=== PATIENT | male | born 1975 | race Caucasian/White ===

== ENCOUNTER 2020-09-27 02:28 | Emergency (ER) | payer BC ==
[~2020-09-27] VITALS: Ht 170.2 cm; Wt 65.0 kg
[~2020-09-27 02:28] MED LIST: NO HOME MEDS
[2020-09-27] MEDS ORDERED: ondansetron/PF 4mg/2ml inj IV ONE (02:55)
[2020-09-27] MEDS ORDERED: normal saline 1000ML IV soln IVB ONE (02:55)
[2020-09-27] MEDS ORDERED: morphine 4 MG/ML inj SYRINge IV PRN (02:55)
[2020-09-27 03:09] LABS: BASOPHILS % (AUTO) 0.6 % (0-1); EOSINOPHILS % (AUTO) 0.5 % (0-6); HEMATOCRIT 48.5 % (42.0-52.0); LYMPHOCYTES # (AUTO) 1.2 X10'3 (1.1-4.8); LYMPHOCYTES % (AUTO) 16.3 % (21-51); MEAN CORPUSCULAR HEMOGLOBIN 29.6 PG (27.0-31.0); MEAN CORPUSCULAR HGB CONC 35.1 g/dL (33.0-36.5); MEAN CORPUSCULAR VOLUME 84.3 FL (78-98); MEAN PLATELET VOLUME 8.3 FL (7.4-10.4); MONOCYTES % (AUTO) 13.6 % (2-12); NEUTROPHILS # (AUTO) 5.2 X10'3 (1.8-7.7); PLATELET COUNT 269 X10'3 (140-440); RED BLOOD COUNT 5.75 X10'6 (4.70-6.10); RED CELL DISTRIBUTION WIDTH 13.2 % (11.5-14.5); WHITE BLOOD COUNT 7.5 X10'3 (4.5-11.0)
[2020-09-27 03:18] LABS: ALANINE AMINOTRANSFERASE 60 U/L (12-78); ALBUMIN 4.2 G/DL (3.4-5.0); ALBUMIN/GLOBULIN RATIO 1.1 (1.1-1.5); ALKALINE PHOSPHATASE 75 IU/L (46-116); ANION GAP 14 (8-16); ASPARTATE AMINO TRANSFERASE 26 U/L (10-37); BILIRUBIN,TOTAL 0.9 MG/DL (0.1-1.0); BLOOD UREA NITROGEN 9 MG/DL (7-18); BUN/CREATININE RATIO 7.3 (5.4-32.0); CHLORIDE 103 MMOL/L (99-107); CREATININE 1.24 MG/DL (0.60-1.10); GLUCOSE 102 MG/DL (70-104); POTASSIUM 3.3 MMOL/L (3.5-5.1); SODIUM 142 MMOL/L (135-145); TOTAL CARBON DIOXIDE 24.9 MMOL/L (24-32); TOTAL PROTEIN 8.2 G/DL (6.4-8.2); eGFR 63 ML/MIN
[2020-09-27 03:20] LABS: LIPASE 138 U/L (73-393); TROPONIN I < 0.04 NG/ML (0.0-0.05)
[2020-09-27] MEDS ORDERED: OMEP20CA15 PO (03:22)
[2020-09-27] MEDS ORDERED: DICY10CA88 PO (03:22)
[2020-09-27] MEDS ORDERED: ONDA4TAB6 PO (03:22)
[2020-09-27 03:57] VITALS: BP 141/96
== END 2020-09-27 03:59 | disposition home or self-care (01) ==
LOC: ER 02:28
DX: R10.13 Epigastric pain (principal); Z90.49 Acquired absence of other specified parts of digestive tract; Z79.899 Other long term (current) drug therapy
CPT/HCPCS: 36415; 74176; 80053; 83690; 84484; 85025; 96374; 96375; 99284; J2270; J2405; J7030

== ENCOUNTER 2022-12-20 19:57 | Emergency (ER) | payer BC ==
[~2022-12-20 19:57] MED LIST changes: +DICY10CA88 PO; +OMEP20CA15 PO; +ONDA4TAB6 PO
[2022-12-20 20:14] VITALS: BP 159/106
[2022-12-20] MEDS ORDERED: LIDOcaine 1% W/epiNEPHrine 1:100,000 20ml vial SQ ONE (21:10)
[2022-12-20] MEDS ORDERED: TETanus/Pertussis (Acell)/Diphther VAC/PF (Tdap-Adult) 0.5ml syringe IMVAC ONE (21:10)
[2022-12-20] MEDS ORDERED: oxyCODONE/APAP 5-325mg tablet PO ONE (21:10)
[2022-12-20] MEDS ORDERED: bacitracin 15gm ointment TP ONE (21:10)
--- NOTE | 2022-12-20 21:14 | NUR ---
PT to xray
--- NOTE | 2022-12-20 22:32 | NUR ---
Laceration irrigated and patient pending sutures.
[2022-12-20] MEDS ORDERED: cephalexin 250mg capsule PO ONE (23:10)
[2022-12-20] MEDS ORDERED: CEPH250T PO (23:11)
== END 2022-12-20 23:28 | disposition home or self-care (01) ==
LOC: ER 19:57
DX: S51.011A Laceration without foreign body of right elbow, initial encounter (principal); V87.8XXA Person injured in other specified noncollision transport accidents involving motor vehicle (traffic), initial encounter; Y93.89 Activity, other specified; Y92.89 Other specified places as the place of occurrence of the external cause; Y99.8 Other external cause status
CPT/HCPCS: 12002; 73070; 73080; 73130; 90471; 90715; 99284; A6258; A6449

== ENCOUNTER 2025-03-03 04:01 | Inpatient (IN) | payer BC ==
[~2025-03-03] VITALS: Ht 167.6 cm; Wt 75.0 kg
--- NOTE | 2025-03-03 04:36 | Physician Documentation ---
History of Present Illness General Chief Complaint: Abdominal Pain Stated Complaint: ABDOMINAL PAIN Time Seen by MD: 04:31 OK to notify your PCP?: Yes Primary Medical Doctor: unknown History of Present Illness Initial Comments This is a 49-year-old gentleman, with a history of appendectomy, who presents for evaluation of sudden onset epigastric abdominal pain. Nonradiating, not migratory, sharp, accompanied by severe nausea. No palliating or aggravating factors. Did not attempt to treat it. This is different from appendicitis pain and has not happened in the past. Denies any chest pain or shortness a breath. No concern for tobacco or illicit substances use. He drinks almost daily. Medication Reconciliation Allergies: Uncoded Allergies: PCN (Allergy, Unknown, 12/29/17) Miscellaneous Medications Home Med List (No Home Medications), (Reported) Discontinued Medications Dicyclomine Hcl* (Bentyl*), 1 CAP PO TID Discontinued Reason: patient no longer taking Omeprazole (Omeprazole), 2 CAP PO BID Discontinued Reason: patient no longer taking Ondansetron Hcl (Zofran), 1 TAB PO Q6H PRN for nausea/vomiting Discontinued Reason: patient no longer taking Past Medical History Past Medical History: No Pertinent History Past Surgical History: appendectomy Drug Use: none Lives with: Spouse Lives In: Home Review of Systems ROS 10 point review of systems was performed and unless noted above in HPI is negative for acute process/complaint. Physical Exam Physical Exam Vital Signs: RN Vital Signs have been reviewed: Yes, Temperature: 96.2, Source: Temporal, Heart Rate: 91, Respiratory Rate: 20, BP: 141/75, Pulse Oximetry: 100, Weight: 75.000 Physical Exam GENERAL: Awake, alert, oriented, GCS 15, [id number] pain related distress, diaphoretic, answers questions, follows commands appropriately. Examined in bed 2., accompanied by HEENT: Atraumatic, normocephalic, pupils equal, extraocular muscles intact, sclerae anicteric, mucus membranes moist, oropharynx is clear, no stridor. NECK: supple, full active range of motion, trachea midline, no thyromegaly, no lymphadenopathy, no JVD. CARDIOVASCULAR: regular rate/rhythm, no murmurs/gallops/rubs, Pulses are 2+ in all extremities and symmetric. Capillary refill less than 2 seconds. PULMONARY: Nonlabored, good air movement ,no respiratory distress, speaking in full sentences, clear to auscultation bilaterally, no wheezing, no ronchi, no rales, no accessory muscle use. GASTROINTESTINAL: Soft, tender to palpation in the upper abdomen without guarding or rebound, non-distended, normal active bowel sounds, no organomegaly, no pulsatile masses, no CVA tenderness. NEUROLOGIC: Lucid with normal mental status. Normal facial symmetry. Moves all extremities symmetrically and with purpose. No truncal ataxia. Speech is fluid without evidence of dysarthria or aphasia, no focal deficits appreciated. MUSCULOSKELETAL: There is full range of motion of all extremities. There is no joint pain or joint swelling or joint erythema. There is no muscle pain or tenderness or swelling. EXTREMITIES: warm, well-perfused, no cyanosis, no clubbing, no edema, no acute deformities. Skin: warm, dry, no rashes or lesions, no jaundice, no petechiae orpurpura. No ecchymosis. PSYCHIATRIC: Normal affect, normal insight, normal concentration. Focused exam: [] Progress Results/Orders Reviewed/noted all lab results: Yes Results/Orders Orders - BERNARDO DAWSON DO Monitor (03/03/25 04:32) Saline Lock (03/03/25 04:32) Ct Abdomen Pelvis (03/03/25 05:20) Ultrasound Of Abdomen (03/03/25 ) Completed Orders - BERNARDO DAWSON DO Ondansetron Inj. (Zofran 4mg/2ml Vial) (03/03/25 04:35) Morphine 4mg/Ml Inj. (Morphine Inj.) (03/03/25 04:35) Prochlorperazine Inj (Compazine Inj) (03/03/25 04:35) Amylase (03/03/25 04:32) Cbc/Diff (03/03/25 04:32) ESR (03/03/25 04:32) Lipase (03/03/25 04:32) C-Reactive Protein (03/03/25 04:32) MG (03/03/25 04:32) Normal Saline 1000ml (0.9% Sodium Chlori (03/03/25 04:35) Ct Abdomen Pelvis (03/03/25 05:20) CMP (03/03/25 04:32) Hs Troponin I W Calculations (03/03/25 04:32) Hs Troponin I W Calculations (03/03/25 06:32) Iohexol 300mg/Ml 100ml Inj. (Omnipaque-3 (03/03/25 04:42) Fentanyl/Pf (Fentanyl 0.05 Mg/Ml Syringe (03/03/25 05:00) Ua W/Microscopic, Cult If Ind (03/03/25 05:14) Ultrasound Of Abdomen (03/03/25 ) TSH (03/03/25 04:30) Vital Signs 03/03/25 03/03/25 03/03/25 03/03/25 04:04 04:48 05:09 06:33 Temp 96.2 Pulse 91 Resp 20 18 14 12 B/P (MAP) 141/75 Pulse Ox 100 03/03/25 03/03/25 03/03/25 03/03/25 06:33 07:00 08:00 08:10 Pulse 93 92 Resp 12 11 12 16 B/P (MAP) 119/82 (94) 123/77 (92) Pulse Ox 98 97 O2 Flow Rate 0 0 Laboratory Tests Test 03/03/25 04:30 03/03/25 05:14 03/03/25 07:27 White Blood Count 6.4 Red Blood Count 5.71 Hemoglobin 16.7 Hematocrit 48.5 Mean Corpuscular Volume 85.0 Mean Corpuscular Hemoglobin 29.2 Mean Corpuscular Hemoglobin Concent 34.4 Red Cell Distribution Width 13.1 Platelet Count 287 Mean Platelet Volume 8.6 Neutrophils (%) (Auto) 66.2 Lymphocytes (%) (Auto) 22.1 Monocytes (%) (Auto) 10.3 Eosinophils (%) (Auto) 0.8 Basophils (%) (Auto) 0.6 Neutrophils # (Auto) 4.2 Lymphocytes # (Auto) 1.4 Monocytes # (Auto) 0.7 Eosinophils # (Auto) 0.1 Basophils # (Auto) 0.0 CBC Comment Erythrocyte Sedimentation Rate 2 Sodium Level 140 Potassium Level 3.8 Chloride Level 106 Carbon Dioxide Level 27.8 Anion Gap 6 L Blood Urea Nitrogen 8 Creatinine 1.03 Estimated GFR/1.73 m2 77 BUN/Creatinine Ratio 7.8 L Glucose Level 115 H Calcium Level 8.5 Magnesium Level 2.1 Total Bilirubin 0.7 Aspartate Amino Transf (AST/SGOT) 19 Alanine Aminotransferase (ALT/SGPT) 32 Alkaline Phosphatase 81 Troponin I High Sensitivity 7 8 C-Reactive Protein 0.18 Total Protein 7.1 Albumin 3.8 Globulin 3.3 Albumin/Globulin Ratio 1.2 Amylase Level 196 H Lipase 32 Thyroid Stimulating Hormone (TSH) 3.01 Chemistry Comments Urine Specimen Description Non-specified Urine Color Yellow Urine Clarity Slightly cloudy Urine pH 7.5 Urine Specific [place] 1.015 Urine Protein Negative Urine Glucose (UA) Negative Urine Ketones Negative Urine Occult Blood Negative Urine Nitrite Negative Urine Bilirubin Negative Urine Urobilinogen 0.2 Urine Leukocyte Esterase Negative Urine RBC None seen Urine WBC None seen Urine Squamous Epithelial Cells None seen Urine Amorphous Phosphates 4+ Urine Bacteria Few Urine Culture Indicated Not ind Volume Urine Centrifuged 10 ml Urine Comment Troponin I High Sens Percent Delta 14 Troponin I Hi Sens Absolute Change 1 EKG/XRAY/CT/US/VASC/MRI CT : Interpreted By: radiologist CT: abdomen/pelvis With Contrast?: No Impression Exam: CT CT ABDOMEN PELVIS W/ IV CONTRAST History: Severe upper abdominal pain COMPARISON: CT ABDOMEN PELVIS on DOS: 09/27/20 Technique: Multidetector spiral CT of the abdomen and pelvis was performed from lung bases to pubic symphysis. Intravenous contrast was administered during this examination. Portal venous imaging was obtained. Axial, coronal and sagittal multiplanar reformats were performed by the technologist on a separate workstation. Radiation Dose : 1. Abdomen/Pelvis: CTDIvol 16.57 mGy, DLP 835.15 mGy*cm. CONTRAST: Type of contrast: Omniscan 300 Contrast injected: 100 ml Findings: Lung Bases: No acute or significant lung base finding. Normal heart size. No pleural or pericardial effusion. Liver: The liver is normal in size. No focal lesions. Normal hepatic vascular enhancement. Gallbladder and Biliary Tree: Mild nonspecific gallbladder distention. Spleen: Unremarkable Pancreas: The pancreas is normal in appearance without focal lesions or abnormal enhancement. Adrenal Glands: Unremarkable Kidneys: No nephrolithiasis or hydronephrosis. Bladder: Unremarkable Bowel: Small sliding-type hiatal hernia. The stomach is grossly normal in appearance. Small bowel and colon are normal in caliber and distribution. The appendix is surgically absent. Ascites: Absent Lymphadenopathy: No mesenteric, retroperitoneal or periportal lymphadenopathy. Abdominal Wall and Mesentery: Unremarkable. Vasculature: The visualized abdominal aorta is normal in size and caliber. Abdominal and pelvic vessels demonstrate normal enhancement. Pelvic Organs: The prostate is moderately enlarged, measuring 5.0 cm transverse, with parenchymal calcifications. Musculoskeletal: No aggressive focal bony lesions, acute fractures or dislocation. IMPRESSION: 1. No acute abdominal or pelvic finding. 2. Small sliding-type hiatal hernia. 3. Prostatomegaly. 4. Mild nonspecific gallbladder distention. Radiation optimization: All CT scans at this facility use at least one of these dose optimization techniques: automated exposure control mA and/or kV adjustment per patient size (includes targeted exams where dose is matched to clinical indication) or iterative reconstruction. Reviewed by myself Ultrasound : Interpreted By: radiologist Ultrasound of: abdomen Impression CLINICAL INFORMATION: Right upper quadrant abdominal pain. TECHNIQUE: Grayscale sonographic imaging of the right upper quadrant of the a faisal was performed, assisted by color Doppler techniques. COMPARISON: CT CT ABDOMEN PELVIS W/ IV CONTRAST on DOS: 03/03/25, CT ABDOMEN PELVIS on DOS: 09/27/20 FINDINGS: The gallbladder wall measures 5.2 mm in thickness, abnormally thickened. There is a shadowing gallstone in the gallbladder measuring up to 1.1 cm in greatest dimension. Negative reported sonographic Braxton's sign. The common bile duct measures 5.3 mm in diameter, within normal limits. The liver is within normal limits in size. There is an echogenic lesion in the right hepatic lobe measuring up to 1.2 cm in greatest dimension, likely hemangioma. The pancreas is obscured by bowel gas. The right kidney measures 10.5 cm. There is no hydronephrosis. Right renal cortical echogenicity and cortical thickness are within normal limits. Portions of the right kidney are obscured by bowel gas. IMPRESSION: 1. Cholelithiasis with thickened gallbladder wall. Acute cholecystitis can not be excluded, although a negative sonographic braxton's sign was reported. 2. Echogenic lesion in the liver, likely hemangioma. Nonemergent MRI liver mass protocol could be considered to further characterize. Reviewed by myself. Medical Decision Making Findings Facility Status: ED Holds, [facility] process The plan was discussed with the patient, who demonstrates clear understanding of the plan and is in agreement with the plan unless otherwise noted in the chart. All questions have been answered, all concerns were addressed unless otherwise documented. I was available throughout their ED stay for frequent reassessment and questions. Differential Diagnoses (considered and possible or likely): [Differential diagnosis considered includes acute appendicitis, acute cholecystitis, pancreatitis, gastritis, PUD, diverticulitis, mesenteric ischemia, abdominal aortic aneurysm, bowel obstruction, enteritis, colitis, fecal impaction, volvulus, IBS, inflammatory bowel disease, specific food intolerance, peritonitis, perforated viscous, malignancy, UTI, abscess, and abdominal pain NOS. History, physical exam, and workup exclude many of the more serious causes listed above. ] ??Differential Diagnoses (considered and unlikely, not requiring evaluation currently): [Aortic/great vessels dissection was considered but it is unlikely based on absence of ripping, tearing, migratory chest pain, absence of syncope or focal neurologic deficits, physical examination indicating equal and symmetric pulses.] MDM Data Please see [facility] for the following: Independent Historians and external Records Review. Historian: [Patient] Independent Historians: ?[, record review] Medication Management: [Reviewed medication list] Social History and determinants: [Reviewed] Please see the body of the note for the following: Any independent interpre tations of ECG, imaging studies. All vitals signs/haemodynamics, ordered tests were independently reviewed and interpreted by myself. Nursing triage complaint and vitals reviewed, additional nursing notes were reviewed as available and I agree unless otherwise noted or documented in contradiction in the chart Vital Signs: Independently reviewed Labs: Independently interpreted Imaging: Independently interpreted Old Medical Records: Independently reviewed, see [facility] for relevant summary and information Pulse Oximetry: [96%] interpreted as [normal on room air] by me [Mobile Application Development Lead: [Regular Rate, Regular rhythm, no ectopy, NSR] reviewed and interpreted by me] Additionally notably showing: [Hemodynamics reviewed. The patient isn't febrile, not tachycardic, no evidence of hypotension respiratory distress. CBC normal. No leukocytosis, no anemia, normal platelets, no neutrophilic pre dominance. Metabolic panel shows very mild hypokalemia. Slightly elevated creatinine. Lipase is normal. Amylase is normal. Troponin is negative.] Tests considered but not ordered include: [Additionally did not considerably ultrasound, however given in the factors CT does not appear to reveal a cause of his pathology, we will obtain the ultrasound.] Social Determinants of Health Impact: Patient was evaluated in [facility], or [facility] [place] to healthcare due to below par ratio of patient to medical providers. [] Comorbid Conditions Impacting Present Evaluation and Care/Treatment: [History of appendectomy] Management Discussions with other Healthcare Providers: [None] Treatment and Disposition Medication Management (Given or considered): [Antiemetics, pain management]. See EMR for details Consideration for Hospitalization/Escalation/Deescalation of Care: Admission for observation has been considered, [however the patient is able to tolerate p.o., their symptoms are controlled, they are able to rely on oral medications, and their chief complaint/diagnosis can be managed on outpatient basis.] ?ED Course:?[Date: Mar 03, 2025 Time: 05:51 patient was signed out pending formal read of the CT as well as performance and read of the ultrasound two and incoming physician. Pain was well-controlled left of fentanyl. ] ?Shared decision making:?[] Code status:?FULL Please see the full Electronic Medical Record for full details of nursing documentation, medications list, other records of complete past medical history and conditions, vital signs, laboratory studies, and any radiologic study interpretations by radiologists. Portions of this note were completed using [employer] dictation software and as a result there may exist minor errors in spelling. I have reviewed elements of past family and social history and agree as included in note. Departure Disposition: 09 ADMITTED INPATIENT Impression: Primary Impression: Acute cholecystitis Additional Impressions: Upper abdominal pain Nausea and vomiting Condition: Improved Discharge Instructions: Abdominal Pain (Nonspecific) Referrals: NO PRIMARY CARE PROVIDER (PCP) Critical Care Note Critical Care Note Patient's ultrasound is positive for for acute cholecystitis. Patient was admitted to medical service by Dr. Hall. Signature Scribe Signature: Scribed for [facility] MD by Dariela Alan . 03/03/25 16:00 Attestation: Date: Mar 03, 2025 Time: 04:36 This note accurately reflects clinical decisions, work performed by myself, DO SAMIR Cordova NICHOLAS M DO Mar 03, 2025 04:36 DARIELA FRY Mar 03, 2025 16:01
[2025-03-03] MEDS ORDERED: iohexol 300mg/ml 100ml inj. ONE (04:42)
[2025-03-03] MEDS: normal saline 1000ML IV soln IVB ONE ×2 (04:47→08:11)
[2025-03-03] MEDS: ondansetron/PF 4mg/2ml inj IV ONE (04:48)
[2025-03-03] MEDS: morphine 4 MG/ML inj SYRINge IV ONE (04:48)
[2025-03-03 04:51] LABS: MEAN PLATELET VOLUME 8.6 FL (7.4-10.4); RED CELL DISTRIBUTION WIDTH 13.1 % (11.5-14.5)
[2025-03-03] MEDS: fentaNYL/PF 50MCG/1 ML 2ML syringe IV ONE (05:09)
[2025-03-03 05:26] LABS: LEUKOCYTE ESTERASE ,URINE NEGATIVE (Neg); NITRITES, URINE NEGATIVE (Neg); OCCULT BLOOD,URINE NEGATIVE (Neg)
[2025-03-03 05:31] LABS: UA COLLECTION TYPE NON-SPECIFIED
[2025-03-03 05:34] LABS: AMORPHOUS PHOSPHATES 4+; SQUAMOUS EPITHELIAL CELL,UR NONE SEEN /LPF (FEW)
--- NOTE | 2025-03-03 06:02 | RADIOLOGY REPORT ---
Exam: CT CT ABDOMEN PELVIS W/ IV CONTRAST History: Severe upper abdominal pain COMPARISON: CT ABDOMEN PELVIS on DOS: 09/27/20 Technique: Multidetector spiral CT of the abdomen and pelvis was performed from lung bases to pubic s ymphysis. Intravenous contrast was administered during this examination. Portal venous imaging was o btained. Axial, coronal and sagittal multiplanar reformats were performed by the technologist on a [employer] workstation. Radiation Dose : 1. Abdomen/Pelvis: CTDIvol 16.57 mGy, DLP 835.15 mGy*cm. CONTRAST: Type of contrast: Omniscan 300 Contrast injected: 100 ml Findings: Lung Bases: No acute or significant lung base finding. Normal heart size. No pleural or pericardial effusion. Liver: The liver is normal in size. No focal lesions. Normal hepatic vascular enhancement. Gallbladder and Biliary Tree: Mild nonspecific gallbladder distention. Spleen: Unremarkable Pancreas: The pancreas is normal in appearance without focal lesions or abnormal enhancement. Adrenal Glands: Unremarkable Kidneys: No nephrolithiasis or hydronephrosis. Bladder: Unremarkable Bowel: Small sliding-type hiatal hernia. The stomach is grossly normal in appearance. Small bowel and colon are normal in caliber and distribution. The appendix is surgically absent. Ascites: Absent Lymphadenopathy: No mesenteric, retroperitoneal or periportal lymphadenopathy. Abdominal Wall and Mesentery: Unremarkable. Vasculature: The visualized abdominal aorta is normal in size and caliber. Abdominal and pelvic vess els demonstrate normal enhancement. Pelvic Organs: The prostate is moderately enlarged, measuring 5.0 cm transverse, with parenchymal christen cifications. Musculoskeletal: No aggressive focal bony lesions, acute fractures or dislocation. IMPRESSION: 1. No acute abdominal or pelvic finding. 2. Small sliding-type hiatal hernia. 3. Prostatomegaly. 4. Mild nonspecific gallbladder distention. Radiation optimization: All CT scans at this facility use at least one of these dose optimization malachi hniques: automated exposure control mA and/or kV adjustment per patient size (includes targeted exam s where dose is matched to clinical indication) or iterative reconstruction.
[2025-03-03] MEDS: ketorolac trometh 15mg/ml vial 15 MG/ML ML IV ONE (08:10)
[2025-03-03] MEDS: CefTRIAXone 2gm/D5W 50ml BAG 50 ML IV ONE (08:11)
--- NOTE | 2025-03-03 08:34 | RADIOLOGY REPORT ---
CLINICAL INFORMATION: Right upper quadrant abdominal pain. TECHNIQUE: Grayscale sonographic imaging of the right upper quadrant of the abdomen was performed, a ssisted by color Doppler techniques. COMPARISON: CT CT ABDOMEN PELVIS W/ IV CONTRAST on DOS: 03/03/25, CT ABDOMEN PELVIS on DOS: 09/27/20 FINDINGS: The gallbladder wall measures 5.2 mm in thickness, abnormally thickened. There is a shad owing gallstone in the gallbladder measuring up to 1.1 cm in greatest dimension. Negative reported so nographic Braxton's sign. The common bile duct measures 5.3 mm in diameter, within normal limits. The liver is within normal limits in size. There is an echogenic lesion in the right hepatic lobe rufus suring up to 1.2 cm in greatest dimension, likely hemangioma. The pancreas is obscured by bowel gas. The right kidney measures 10.5 cm. There is no hydronephrosis. Right renal cortical echogenicity a nd cortical thickness are within normal limits. Portions of the right kidney are obscured by bowel ga s. IMPRESSION: 1. Cholelithiasis with thickened gallbladder wall. Acute cholecystitis can not be excluded, although a negative sonographic braxton's sign was reported. 2. Echogenic lesion in the liver, likely hemangioma. Nonemergent MRI liver mass protocol could be con sidered to further characterize.
[2025-03-03 08:40] LABS: CREATININE 1.03 MG/DL (0.60-1.10); TOTAL CARBON DIOXIDE 27.8 MMOL/L (24-32); eCRCL 79 ML/MIN; eGFR 77 ML/MIN
[2025-03-03 10:06] LABS: URINE AMPHETAMINE SCREEN NEGATIVE (Neg); URINE BARBITUATE SCREEN NEGATIVE (Neg); URINE BENZODIAZEPINES SCREEN NEGATIVE (Neg); URINE CANNABINOID SCREEN NEGATIVE (Neg); URINE COCAINE SCREEN NEGATIVE (Neg); URINE METHADONE SCREEN NEGATIVE (Neg); URINE OPIATE SCREEN POSITIVE (Neg); URINE PHENCYCLIDINE SCREEN NEGATIVE (Neg)
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
[2025-03-03] MEDS ORDERED: potassium Cl 20 mEq SR tablet PO PRN ×2 (11:35)
[2025-03-03] MEDS ORDERED: haloperidol lactate 5mg/ml inj IM PRN (11:35)
[2025-03-03] MEDS ORDERED: magnesium Cl slow-release 64mg tablet PO PRN (11:35)
[2025-03-03] MEDS ORDERED: HYDROcodone/acetaminophen 5mg/325mg tablet PO PRN (11:35)
[2025-03-03] MEDS ORDERED: magnesium hydroxide 30ml (MOM) UD suspension PO PRN (11:35)
[2025-03-03] MEDS ORDERED: dextrose 50%-water 50ml dispensing syringe IV PRN (11:35)
[2025-03-03] MEDS ORDERED: ondansetron/PF 4mg/2ml inj IV PRN (11:35)
[2025-03-03] MEDS ORDERED: magnesium sulf-water 2g/50mL 50 ML IV PRN (11:35)
[2025-03-03] MEDS ORDERED: magnesium sulf-water 4G/100mL 100 ML IV PRN (11:35)
[2025-03-03] MEDS ORDERED: potassium Cl 40MEQ/1/2NS 520ml 520 ML IV PRN (11:35)
[2025-03-03] MEDS ORDERED: mag hydrox/Alum hydrox/simeth 30ml oral suspension PO PRN (11:35)
[2025-03-03] MEDS ORDERED: CefTRIAXone/D5W-Rocephin 1gm 50 ML IV SCH (11:45)
[2025-03-03] MEDS ORDERED: diazepam inj 5 MG/ML inj. IV PRN (11:55)
[2025-03-03 12:25] LABS: CHOL/HDL RATIO 2.9 (0.00-4.99); LDL CHOLESTEROL 82 MG/DL (50-100)
[2025-03-03] MEDS: thiamine 100mg/ml 2ml inj. IV SCH (13:16)
[2025-03-03] MEDS: metroNIDAZOLE-Flagyl 500mg/NS 100 ML IV SCH (17:42)
[2025-03-03 19:20] VITALS: BP 122/43; PULSE 90; RESP 20; TEMP 96.7; O2SAT 95
[2025-03-03 19:30] VITALS: RESP 18; O2SAT 97
[2025-03-03] MEDS: K and/or MAG REPLACEMENT MC SCH (20:00)
[2025-03-03] MEDS: docusate sod 100mg capsule PO SCH (20:00)
[2025-03-03 22:00] VITALS: BP 110/65; PULSE 104; RESP 16; TEMP 97.3; O2SAT 99
[2025-03-04 05:59] LABS: MEAN PLATELET VOLUME 8.5 FL (7.4-10.4); RED CELL DISTRIBUTION WIDTH 13.2 % (11.5-14.5)
[2025-03-04 06:00] VITALS: BP 96/59; PULSE 69; RESP 16; TEMP 97.3; O2SAT 98
[2025-03-04 06:10] LABS: APTT 29 SECONDS (22-32); INR 1.0 INR
[2025-03-04 06:27] LABS: CREATININE 1.20 MG/DL (0.60-1.10); PHOSPHORUS 3.5 MG/DL (2.3-4.5); TOTAL CARBON DIOXIDE 26.2 MMOL/L (24-32); eCRCL 68 ML/MIN; eGFR 65 ML/MIN
[2025-03-04 07:29] VITALS: RESP 16; O2SAT 96
[2025-03-04] MEDS: enoxaparin 40mg/0.4ml syringe SUBCUT SCH (07:56)
[2025-03-04] MEDS: CefTRIAXone/D5W-Rocephin 1gm 50 ML IV SCH (07:56)
[2025-03-04] MEDS: folic acid 1mg/0.2ml inj IV SCH (07:59)
[2025-03-04 10:00] VITALS: BP 120/77; PULSE 91; RESP 16; TEMP 97.8; O2SAT 98
[2025-03-04] MEDS: ringers solution, lacted 1,000 ML IV SCH (10:10)
--- NOTE | 2025-03-04 16:19 | PROGRESS NOTE- Residence ---
Progress Note - Resident Providers to CC Resident Creating Document: ILIA GALEAS RES CC: MEET GARCIA MD ~ Antibiotic Timeout Antibiotic Ordered?: Yes Subjective Patient was seen and examined at bedside, he reports no abdominal pain, no nausea, vomitting, no chest pain, passed bowel movement last night. He also mentioned that that last time he had appendectomy in 2017 and it took him longer to recover from anesthesia and when he was recovered he vomited many times ,i told him to mention this to recyclable materials collector and surgeon. Objective Vital Signs Date Time Temp Pulse Resp B/P (MAP) Pulse Ox O2 Delivery O2 Flow Rate FiO2 03/04/25 10:00 97.8 91 16 120/77 (91) 98 Room Air 03/03/25 22:00 0.0 Result Diagram: 03/04/2552503/04/25525 General: awake, alert oriented to place, time, and person HEENT: No pallor present, no icterus, moist mucous membranes Neck: No masses and tenderness Resp: Unlabored. Lungs clear to auscultation bilaterally. Chest: Normal expansion. Cardiovascular: Regular Rate and rhythm, normal S1 and S2 without murmur, rub or gallop Abdomen: Soft and non tender abodmen,no organomegaly, no guarding and rigidity, bowel sounds present Neuro: No focal weakness in the upper and lower limb muscles, power of the muscles 5/5 bilateral upper and lower extremities, normal reflexes bilaterally. Cranial nerves intact Extremities: No cyanosis,clubbing or edema MusculoSkelelatal: No arthalagia or myalgia. Skin: Warm and Dry. No lesions Psych: Normal affect Coagulation Studies Laboratory Tests Test 03/04/25 05:26 Prothrombin Time 10.4 SECONDS (9.0-12.0) INR International Normalized Ratio 1.0 INR Activated Partial Thromboplast Time 29 SECONDS (22-32) Coagulation Comments Plan Plan Patient presented in ER with complain of abdominal pain abdominal ultrasound was suggestive of cholelithiasis and he is being admitted for for management of cholelithiasis. Symtomatic Cholelithiasis Abdominal U/S: Cholelithiasis with thickened gallbladder wall. Acute cholecystitis can not be excluded, although a negative sonographic staley's sign was reported Echogenic lesion in the liver, likely hemangioma. Nonemergent MRI liver mass protocol could be considered to further characterize. [place] sign negative on ultrasound. CT Scan Abdomen Pelvis: No acute abdominal or pelvic finding. Small sliding-type hiatal hernia. Prostatomegaly.Mild nonspecific gallbladder distention. WBC normal, ESR CRP normal Hyperamylasemia 196, will repeat amylase follow up with that. Patient receved one dose of ceftriaxone in ER and NS 1000 ml bolus Give pain med as needed Continue empiric antibiotic Rocephin 1 gm ,day 2 Continue Metriondazole Day 2 Patient NPO on Wednesday aftermidnight. Dr. Daley has been consulted and will do surgery on Wednesday. Monitor Patient for complication of gallstone pancreatitis, cholecystitis and cholangitis Follow up with amylase and lipase. Acute Kidney Injury Possbily Prerenal Creatinine : 1.20 Continue LR 150 ml/hr Follow up with Urine lytes DVT Prophylaxis: lovenix Diet: NPO after midnight Code Status: Full Code Disposition: Patient will undergo surgery on Wednesday with , keep patient NPO on Wednesday after midnight. Date of Service: Mar 04, 2025 Billing Provider: MEET GARCIA MD, SANJAY, RES Mar 04, 2025 16:19
--- NOTE | 2025-03-04 17:30 | PROGRESS NOTE ---
Progress Note ID Providers to CC ~ Progress Note Progress Note: denies pain/shiela in am LYLE HADDAD MD Mar 04, 2025 17:30
[2025-03-04 18:40] VITALS: BP 118/74; PULSE 87; RESP 15; TEMP 98.8; O2SAT 96
[2025-03-04 22:00] VITALS: BP 111/73; PULSE 86; RESP 16; TEMP 98.2; O2SAT 100
[2025-03-05] VITALS (25 sets, daily range): BP systolic 109–155; BP diastolic 57–108; PULSE 63–109; RESP 10–22; TEMP 97.3–98.4; O2SAT 94–100
[2025-03-05 05:47] LABS: MEAN PLATELET VOLUME 9.1 FL (7.4-10.4); RED CELL DISTRIBUTION WIDTH 13.0 % (11.5-14.5)
[2025-03-05 05:59] LABS: APTT 30 SECONDS (22-32); INR 1.0 INR
[2025-03-05 06:06] LABS: CREATININE 0.97 MG/DL (0.60-1.10); PHOSPHORUS 3.3 MG/DL (2.3-4.5); TOTAL CARBON DIOXIDE 25.3 MMOL/L (24-32); eCRCL 84 ML/MIN; eGFR 83 ML/MIN
[2025-03-05] MEDS ORDERED: BUPIVAcaine 2.5mg/ml inj 50ml vial (contains preservative) ONE ×2 (07:57→09:42)
--- NOTE | 2025-03-05 08:03 | ELECTROCARDIOGRAPH REPORT ---
[facility] Test Date: 2025-03-05 Test Time: 08:02:01 Pat Name: JUDY BAZAN Department: [facility] 3 Patient ID: [id number] Room: [place] [address] B Gender: M Senior It Business Analyst: IRIS : 1975 Requested By: LYLE HADDAD Order Number: [id number] Reading MD: Dr. MARILIA Lorenzana Measurements Intervals [place] Rate: 84 P: 78 CA: 149 QRS: 76 QRSD: 94 T: 63 QT: 362 QTc: 428 Interpretive Statements Sinus rhythm Biatrial enlargement Electronically Signed On 03-05-2025 19:24:[address] MARILIA Lorenzana Please click the below link to view image of tracing.
[2025-03-05] MEDS ORDERED: ondansetron/PF 4mg/2ml inj IV PRN ×3 (09:45→13:30)
[2025-03-05] MEDS: ringers solution, lacted 1,000 ML IV SCH (09:45)
[2025-03-05] MEDS ORDERED: morphine 4 MG/ML inj SYRINge IV PRN (09:45)
[2025-03-05] MEDS ORDERED: meperidine/PF 25mg/ml syringe IV PRN ×3 (09:45)
[2025-03-05] MEDS ORDERED: enalaprilat 1.25mg/ml 2ml vial IV PRN (09:45)
[2025-03-05] MEDS ORDERED: labetalol 20mg/4ml (5mg/ml) syringe IV PRN ×2 (09:45→12:35)
--- NOTE | 2025-03-05 09:58 | PROGRESS NOTE ---
Progress Note ID Providers to CC ~ Progress Note Progress Note: discussed procedure including risks/benefits/alternatives LYLE HADDAD MD Mar 05, 2025 09:58
[2025-03-05] MEDS: scopolamine 1MG/72H patch 1 PATCH PATCH.TD.3 TD SCH (12:07)
[2025-03-05] MEDS ORDERED: fentaNYL/PF 50MCG/1 ML 2ML syringe IV PRN (12:35)
[2025-03-05] MEDS ORDERED: ringers solution, lacted 1,000 ML IV SCH (12:35)
[2025-03-05] MEDS ORDERED: hydrALAZINE 20mg/ml inj. IV PRN (12:35)
[2025-03-05] MEDS ORDERED: fentaNYL/PF 50MCG/1 ML 2ML syringe ONE (12:39)
[2025-03-05] MEDS ORDERED: MIDAZolam 1 MG/ML 5ML VIAL ONE (12:40)
[2025-03-05] MEDS ORDERED: propofol inj 20 ML IV ONE (12:47)
[2025-03-05] MEDS ORDERED: LIDOcaine 1%/PF 5ML 10 MG/ML VIAL ONE (12:47)
[2025-03-05] MEDS ORDERED: ondansetron/PF 4mg/2ml inj ONE (12:48)
[2025-03-05] MEDS ORDERED: glycopyrrolate 0.2mg/ml inj ONE (12:48)
[2025-03-05] MEDS ORDERED: rocuronium 10mg/ml inj IV ONE (12:48)
[2025-03-05] MEDS ORDERED: dexamethasone sod phosphate 4mg/ml inj. ONE (12:48)
[2025-03-05] MEDS ORDERED: acetaminophen 1,000mg/100ml IV 100 ML IV ONE (12:52)
[2025-03-05] MEDS ORDERED: clindamycin-Cleocin 900mg/D5W 50 ML IV ONE (13:00)
--- NOTE | 2025-03-05 13:25 | OPERATIVE REPORT ---
Operative Report Providers to CC ~ Date of Procedure: Mar 05, 2025 Pre-Operative Diagnosis: symptomatic cholelithiasis Post-Operative Diagnosis SAME as PRE-Op Procedure Performed sebastien kuo Surgeon: talya blanco Anesthesiologist: Samson Flor Type of Anesthesia: General Findings: distended gb with adhesions Estimated Blood Loss: min Specimen Removed: LYLE Bacon MD Mar 05, 2025 13:25
[2025-03-05] MEDS ORDERED: HYDROcodone/acetaminophen 10/325mg tab PO PRN (13:30)
[2025-03-05] MEDS: morphine 4 MG/ML inj SYRINge IV PRN (13:45)
[2025-03-05] MEDS: fentaNYL/PF 50MCG/1 ML 2ML syringe IV PRN (13:51)
--- NOTE | 2025-03-05 14:24 | OPERATIVE REPORT ---
DATE OF SURGERY: 03/05/2025 DICTATING PHYSICIAN: Lewis Nuñez MD PREOPERATIVE DIAGNOSIS: Symptomatic cholecystitis. POSTOPERATIVE DIAGNOSIS: Symptomatic cholecystitis. PROCEDURE PERFORMED: Robotic cholecystectomy. SURGEON: Lewis Nuñez MD RN CARDIAC CATH: Richardson. ANESTHESIA: General/Dr. Flor. DRAINS: None. INDICATIONS FOR OPERATION: A 49-year-old male presenting with abdominal discomfort, found to have symptomatic cholecystitis, taken to surgery for robotic cholecystectomy. INTRAOPERATIVE FINDINGS: Distended gallbladder with adhesions. DESCRIPTION OF PROCEDURE: The patient was placed supine on the operating table. After induction of general anesthesia and placement of endotracheal tube, the abdomen was prepped and draped. A subumbilical incision was then made and Andre port placed using open technique and pneumoperitoneum was begun by insufflation of CO2. Additional ports were placed, one in left lower quadrant and two in the right. Robot was then brought to the field. Camera port docked. Camera placed, camera targeted. Additional ports were then docked and instruments placed. Abdomen was then explored. Gallbladder fundus was grasped and retracted cephalad. Adhesions were taken down. Cystic duct identified, isolated, ligated, clipped and divided the cystic artery. The gallbladder was then mobilized down the gallbladder fossa. Hemostasis was found to be adequate. Robotic instruments were removed from the field. Gallbladder was placed in Endobag using laparoscope. Abdomen was irrigated with large amount of antibiotic-containing solution. Ports were then removed under laparoscopic vision with no evidence of active bleeding. Final port and camera withdrawn along with the gallbladder in Endobag. Wounds were closed in layers. Skin was closed with clips. Dressing was applied. The patient was transferred to recovery in stable condition after reversing from general anesthesia. Lewis Nuñez MD TID: [id number] RECEIPT: [id number] KB/TAR
[2025-03-05] MEDS: ketorolac trometh 30MG/ML vial 30 MG/ML VIAL IV ONE (14:36)
--- NOTE | 2025-03-05 14:42 | PROGRESS NOTE- Residence ---
Progress Note - Resident Providers to CC Resident Creating Document: DAVID GOOD, RES ~ Antibiotic Timeout Antibiotic Ordered?: Yes Subjective The patient has been evaluated at bedside. The patient reports improvement of pain, last bowel movement today, normal. Objective Vital Signs Date Time Temp Pulse Resp B/P (MAP) Pulse Ox O2 Delivery O2 Flow Rate FiO2 03/05/25 14:28 12 03/05/25 14:10 72 145/96 (112) 100 Nasal Cannula 2.0 03/05/25 13:31 97.0 Physical exam: General: Well alert, well oriented, not confused, not agitated, not in acute distress, well cooperated during the physical. HEENT: Conjunctive are pink, sclerae clear, no icterus, pupil is equal in both sides, reactive to light, no ear discharge, no pharyngeal erythema or an edema. Neck: Supple, no JVD, no lymphadenopathy and thyromegaly. Chest: Equal air entry on both lungs, no additional sounds no rhonchi no wheezing at the moment. Cardiovascular: S1-S2 regular sinus rhythm and, regular rate, no gallops, no rubs, no murmurs Abdomen: No visible peristalsis, Bowel sounds present on auscultation, t enderness at the level of the right upper quadrant with deep palpation. Extremities: No obvious deformities, no pitting edema bilaterally, capillary refill intact, peripheral pulsations are intact on both sides Central Nervous System: No focal neurological deficits, no motor or sensory weakness in all 4 extremities, could move all 4 extremities, 2+ deep tendon reflexes, negative Babinski. Musculoskeletal: No joint swelling, deformities, inflammations, and no scoliosis and back tenderness Skin: Warm and dry. Result Diagram: 03/05/25 0450 03/05/25 0450 Coagulation Studies Laboratory Tests Test 03/05/25 04:50 Prothrombin Time 10.2 SECONDS (9.0-12.0) INR International Normalized Ratio 1.0 INR Activated Partial Thromboplast Time 30 SECONDS (22-32) Coagulation Comments Assessment Assessment 49 years old male patient came to the hospital with chief complaint of abdominal pain in the level of the right upper quadrant. Plan Plan Acute cholecystitis: Symptomatic cholelithiasis: A: The patient came to the hospital with chief complaint of right upper quadrant pain. Abdominal U/S: Cholelithiasis with thickened gallbladder wall. Acute cholecystitis can not be excluded, although a negative sonographic staley's sign was reported Echogenic lesion in the liver, likely hemangioma. Nonemergent MRI liver mass protocol could be considered to further characterize. [place] sign negative on ultrasound. CT Scan Abdomen Pelvis: No acute abdominal or pelvic finding. Small sliding-type hiatal hernia. Prostatomegaly.Mild nonspecific gallbladder distention. Plan: Continue ceftriaxone 1 g IV daily. Day 3. Continue metronidazole IV t.i.d.. Day 3. Culturelle [id number] mmu b.i.d. The patient will undergo cholecystectomy by Dr. Dickens today. Acute kidney injury likely prerenal secondary to dehydration-improving: A: Vasomotor nephropathy: Creatinine : 1.20-improved to 0.87. Plan: Continue LR at 80 mL/hour. Pending urine lytes, in process. Code status: Full code DVT prophylaxis: SCDs. Analgesia/sedation: Enoxaparin 40 mg daily. Line/tube: PIV GI prophylaxis: None Nutrition: Clear liquid diet after surgery. PT: No Prognosis: Guarded Disposition: Continue medical management. The patient will undergo cholecystectomy on 03/05/[address] Verdugo. David Hogan Internal Medicine Resident [facility] Date of Service: Mar 05, 2025 Billing Provider: MEET GARCIA MD,DAVID CALDWELL, RES Mar 05, 2025 14:42
[2025-03-05] MEDS ORDERED: HYDROmorphone/PF 0.2 MG/ML SYRINGE IV PRN (14:55)
[2025-03-05] MEDS: HYDROmorphone/PF 0.2 MG/ML SYRINGE IV PRN (15:04)
--- NOTE | 2025-03-05 20:05 | CONSULTATION ---
DATE OF CONSULTATION: 03/05/2025 DICTATING PHYSICIAN: Lewis Nuñez MD REASON FOR CONSULTATION: Evaluation of abdominal pain. HISTORY OF PRESENT ILLNESS: The patient is a 49-year-old male with complaints of right upper quadrant pain, found to have cholelithiasis. Surgical evaluation now requested. On further questioning, the patient's pain is much improved. Has had some nausea and vomiting. PAST MEDICAL HISTORY: Essentially unremarkable. PAST SURGICAL HISTORY: Previous appendectomy. HOME MEDICATIONS: None. ALLERGIES: PENICILLIN. SOCIAL HISTORY: No tobacco. Minimal alcohol. REVIEW OF SYSTEMS: See H and P. PHYSICAL EXAMINATION: GENERAL: Well-nourished male, in minimal distress. VITAL SIGNS: Unremarkable. HEART: Regular rate and rhythm. LUNGS: Clear to auscultation. ABDOMEN: Shows minimal tenderness at the present time. EXTREMITIES: Unremarkable. NEUROLOGIC: Nonfocal. LABORATORY DATA: Include WBC of 5.9, hematocrit 22, platelet count is 212. Chemistries, LFTs unremarkable. IMAGING STUDIES: Abdominal ultrasound confirms the presence of cholelithiasis with thickened gallbladder wall. IMPRESSION: Cholelithiasis. PLAN: * Admit. * Hydrate. * Robotic shiela when robotic team available. Lewis Nuñez MD TID: [id number] RECEIPT: [id number] TWIN/FIDEL/PRAMOD
[2025-03-06 02:00] VITALS: BP 141/85; PULSE 77; RESP 16; TEMP 98.1; O2SAT 96
[2025-03-06 03:48] LABS: MEAN PLATELET VOLUME 8.6 FL (7.4-10.4); RED CELL DISTRIBUTION WIDTH 13.0 % (11.5-14.5)
[2025-03-06 04:00] LABS: APTT 27 SECONDS (22-32); INR 1.1 INR
[2025-03-06 04:06] LABS: CREATININE 0.87 MG/DL (0.60-1.10); PHOSPHORUS 3.4 MG/DL (2.3-4.5); TOTAL CARBON DIOXIDE 25.2 MMOL/L (24-32); eCRCL 94 ML/MIN; eGFR > 90 ML/MIN
[2025-03-06 06:00] VITALS: BP 132/78; PULSE 99; RESP 15; TEMP 98.5; O2SAT 99
[2025-03-06] MEDS: lactobacillus rhamnosus 10,000 MMU CELLS/CAPSULE PO SCH (07:21)
[2025-03-06 08:00] VITALS: RESP 15; O2SAT 99
[2025-03-06 10:00] VITALS: BP 127/88; PULSE 88; RESP 16; TEMP 98; O2SAT 98
[2025-03-06] MEDS ORDERED: PANT-47 PO (11:35)
[2025-03-06] MEDS ORDERED: FOLI0.4T6 PO (11:35)
[2025-03-06] MEDS ORDERED: THIA50TA10 PO (11:35)
[2025-03-06] MEDS ORDERED: LACT1CAP26 PO (11:35)
[2025-03-06] MEDS ORDERED: METR-159 PO (11:35)
[2025-03-06] MEDS ORDERED: MULT-1249 PO (11:35)
[2025-03-06] MEDS ORDERED: CEFD300C3 PO (11:38)
--- NOTE | 2025-03-06 19:55 | PROGRESS NOTE ---
Progress Note ID Providers to CC ~ Progress Note Progress Note: doing well/ok to dc LYLE HADDAD MD Mar 06, 2025 19:55
--- NOTE | 2025-03-06 22:06 | DISCHARGE SUMMARY-Residence ---
Discharge Summary Providers to CC Resident Creating Document: ILIA GALEAS RES CC: MEET GARCIA MD ~ Discharge Summary Admission Diagnosis: symptomatic cholelithiasis Hospital Course DATE OF ADMISSION: 03/03/25 DATE OF DISCHARGE : Discharge Diagnosis\Comment: Cholilthiasis, Resolved REBEKAH,resolved Operations\Procedures: Robotic Cholecystectomy Consultants: Complications: none Condition on DC: Stable New Medications: Cefdinir* (Cefdinir*) 300 Mg Capsule 1 CAP PO Q12H for 3 Days, #6 CAP Folic Acid* (Folic Acid*) 0.4 Mg Tablet 1 TAB PO DAILY for 30 Days, #30 TAB Lactobacillus Rhamnosus (Culturelle) 10 Billion Cell Capsule 1 CAP PO BID for 30 Days, #60 CAP 0 Refills Metronidazole* (Flagyl*) 500 Mg Tablet 1 TAB PO BID for 2 Days, #4 TAB Multivitamin (Multivitamin) 1 Each Tablet 1 TAB PO DAILY for 30 Days, #30 TAB 0 Refills Pantoprazole Sodium (PROTONIX tablet) 40 Mg Tablet.dr 40 MG PO DAILY for 30 Days, TAB.SR Thiamine HCl (Vitamin B-1) 50 Mg Tablet 2 TAB PO DAILY for 30 Days, #60 TAB 0 Refills Continued Medications: Home Med List (No Home Medications) Each Discharge Summary: Hospital Course This is 49 year old male with past medical history of appendectomy presented to ER with complaint of right upper quadrant abdominal pain. He was managed with intravenous fluids NS and LR, pain medications as needed, and intravenous antibiotic ceftriaxone. Abdominal ultrasound was performed, which revealed cholelithiasis. was consulted who performed robotic cholecystectomy. Apart from that patient also had REBEKAH which was treated with fluids. Patient was medically stable for discharge. Physical Examination on Discharge General: awake, alert oriented to place, time, and person HEENT: No pallor present, no icterus, moist mucous membranes Neck: No masses and tenderness Resp: Unlabored. Lungs clear to auscultation bilaterally. Chest: Normal expansion. Cardiovascular: Regular Rate and rhythm, normal S1 and S2 without murmur, rub or gallop Abdomen: Soft and non tender abodmen,no organomegaly, no guarding and rigidity, bowel sounds present, Dressing dry and clean. Neuro: No focal weakness in the upper and lower limb muscles, power of the muscles 5/5 bilateral upper and lower extremities, normal reflexes bilaterally. Cranial nerves intact Extremities: No cyanosis,clubbing or edema MusculoSkelelatal: No arthalagia or myalgia. Skin: Warm and Dry. No lesions Psych: Normal affect Labs on Discharge Wbc: 10.2 Hgb: 15.4 Hct: 44.8 Na: 137 K: 3.7 BUN: 11 Creatinine: 0.87 Imaging Abdominal US: IMPRESSION: 1. Cholelithiasis with thickened gallbladder wall. Acute cholecystitis can not be excluded, although a negative sonographic staley's sign was reported. 2. Echogenic lesion in the liver, likely hemangioma. Nonemergent MRI liver mass protocol could be considered to further characterize. Abdominal Pelvis/CT: 1. No acute abdominal or pelvic finding. 2. Small sliding-type hiatal hernia. 3. Prostatomegaly. 4. Mild nonspecific gallbladder distention. Discharge Instructions FOLLOW UP WITH DR HADDAD AND PCP IN 10 DAYS. ACTIVITY TOLERATED. STRICT AVOIDANCE OF ALCOHOL. TAKE ANTIBIOTIC CEFDIIR FOR FOR 3 MORE DAYS AND FLAGYL FOR 2 MORE DAYS AND THEN STOP. IF CONDITON WORSENS CALL 911 OR G TO THE NEAREST ER IMMEDIATELY. *Problems/Diagnosis: (1) Upper abdominal pain Status: Resolved Total Time Spent on D/C: > 30 Minutes Date of Service: Mar 06, 2025 Billing Provider: MEET GARCIA MD,ILIA, RES Mar 06, 2025 22:06
--- NOTE | 2025-03-07 18:37 | PATHOLOGY REPORT ---
[facility] [address] [place] [address] SURGICAL PATHOLOGY REPORT CaseNumber: [id number] Surgeon:CAILIN Agustin CLINICAL INFORMATION CLINICAL INFORMATION: Not provided. DIAGNOSIS DIAGNOSIS: GALLBLADDER; ROBOTIC-ASSISTED LAPAROSCOPIC MICHAEL - MILD CHRONIC CHOLECYSTITIS. - CHOLELITHIASIS. MICROSCOPIC DESCRIPTION MICROSCOPIC DESCRIPTION: A single slide of the submitted gallbladder is reviewed. Present is mild chronic cholecystitis. The lining gallbladder mucosa is intact without dysplastic features. It invaginates into the underlying muscularis propria. The gallbladder wall is thickened due to an increased content of fibrous tissue. There are scattered lymphocytes throughout. There are no features of malignancy. (st) GROSS DESCRIPTION GROSS DESCRIPTION: Received in a container of formalin labeled with the patient's name, number, and "gallbladder" is an intact gallbladder which measures 6 cm long by 2 cm in diameter. The serosa is slightly roughened and purple-alvarez. The surgical bed is unremarkable. Sectioning reveals a small amount of viscous dark green bile and a 0.9 cm yellow-green stone. The mucosa is intact and without focal lesion. The wall of the gallbladder measures up to 0.7 cm thick. Drum Sander sections of the neck and wall of the gallbladder are submitted as A1.The time at which the specimen was removed was 1258. The time at which the specimen was placed in formalin was 1335. Electronically signed by: Melissa Wade M.D. 03/07/2025 6:01:00 PM
== END 2025-03-06 13:21 | disposition home or self-care (01) | DRG 417 ==
LOC: ER 04:01 → ED HOLD 08:11 → SUR 3N 19:23
PROVIDERS: ADMIT Family Medicine; ATTEND Family Medicine
PROC: 8E0W4CZ Robotic Assisted Procedure of Trunk Region, Percutaneous Endoscopic Approach (ICD-10-PCS; 2025-03-05)
PROC: 0FT44ZZ Resection of Gallbladder, Percutaneous Endoscopic Approach (ICD-10-PCS; principal; 2025-03-05 12:26)
DX: K80.00 Calculus of gallbladder with acute cholecystitis without obstruction (principal); N17.0 Acute kidney failure with tubular necrosis; N40.0 Benign prostatic hyperplasia without lower urinary tract symptoms; K82.8 Other specified diseases of gallbladder; K44.9 Diaphragmatic hernia without obstruction or gangrene; Z88.0 Allergy status to penicillin
CPT/HCPCS: 96361; 96374; 96375; 99285; Z7506; Z7508; 36415; 74177; 76700; 80053; 80061; 80305; 81001; 82150; 82948; 83690; 83735; 83930; 84100; 84145; 84443; 84484; 85025; 85610; 85651; 85730; 86140; 87081; 93005; A4215; A4615; A4618; A7000; C1758; G0378; J0131; J0696; J0780; J1100; J1171; J1650; J1885; J2250; J2270; J2405; J2704; J2710; J3010; J3411; J3490; J7030; J7040; J7120; Q9967